=== PATIENT | male | born 1960 | race Caucasian/White ===

== ENCOUNTER 2017-02-05 05:44 | Day surgery (SDC) | payer OTHER ==
[~2017-02-05] VITALS: Ht 180.3 cm; Wt 102.6 kg
[2017-02-05] MEDS ORDERED: LIDOCAINE 1%, 2ML ONE (06:47)
[2017-02-05 06:49] VITALS: BP 146/79
[2017-02-05] MEDS ORDERED: LACTATED RINGERS 1,000 ML IV SCH (07:00)
[2017-02-05] MEDS ORDERED: LIDOCAINE 1%, 2ML SQ PRN (07:00)
[2017-02-05] MEDS ORDERED: BUPIVACAINE/PF 0.25% ONE (07:02)
[2017-02-05] MEDS ORDERED: THROMBIN 5,000 UNIT VIAL TP ONE (07:03)
[2017-02-05] MEDS ORDERED: EPINEPHRINE 1 MG/ML, 1ML ONE (07:03)
[2017-02-05] MEDS ORDERED: VANCOMYCIN 1,000 MG ONE (07:03)
[2017-02-05] MEDS ORDERED: LIDOCAINE/PF 0.5% ,50ML ONE (07:03)
[2017-02-05] MEDS ORDERED: GLIP10TA13 PO (07:08)
[2017-02-05] MEDS ORDERED: DULA1.5P SQ (07:08)
[2017-02-05] MEDS ORDERED: LISI5TAB7 PO (07:08)
[2017-02-05] MEDS ORDERED: ATOR20TA9 PO (07:08)
[2017-02-05] MEDS ORDERED: ASPI-496 PO (07:08)
[2017-02-05] MEDS ORDERED: INSU100V8 SQ (07:08)
[2017-02-05] MEDS ORDERED: FENO43CA3 PO (07:08)
[2017-02-05] MEDS ORDERED: OXYC1TAB9 PO (07:08)
[2017-02-05] MEDS ORDERED: METF500T4 PO (07:08)
[2017-02-05] MEDS ORDERED: DEXAMETHASONE 4 MG/ML, 1ML ONE ×2 (07:20→07:37)
[2017-02-05] MEDS ORDERED: SUCCINYLCHOLINE 20 MG/ML, 10ML ONE (07:20)
[2017-02-05] MEDS ORDERED: PROPOFOL 10 MG/ML, 20ML ONE (07:20)
[2017-02-05] MEDS ORDERED: FENTANYL PF 250 MCG/5ML ONE (07:20)
[2017-02-05] MEDS ORDERED: MIDAZOLAM 1 MG/ML, 2ML ONE (07:20)
[2017-02-05] MEDS ORDERED: ROCURONIUM 10 MG/ML,10ML ONE (07:20)
[2017-02-05] MEDS ORDERED: LIDOCAINE GEL 2%, 5ML ONE (07:20)
[2017-02-05] MEDS ORDERED: ONDANSETRON 2MG/ML, 2ML ONE (07:21)
[2017-02-05] MEDS ORDERED: CEFAZOLIN 1,000 MG ONE ×2 (07:37→07:58)
[2017-02-05] MEDS ORDERED: KETAMINE 10 MG/ML, 20ML ONE (07:59)
[2017-02-05] MEDS ORDERED: LABETALOL 5MG/ML, 20ML IV PRN (08:30)
[2017-02-05] MEDS ORDERED: OXYcodone 5 MG/5 ML ORAL.SOL UDC PO PRN (08:30)
[2017-02-05] MEDS ORDERED: hydrALAzine 20 MG/ML, 1ML IV PRN (08:30)
[2017-02-05] MEDS ORDERED: ALBUTEROL SULFATE 2.5 MG/3 ML NPPB PRN (08:30)
[2017-02-05] MEDS ORDERED: PROMETHAZINE 25 MG/ML, 1ML IV PRN (08:30)
[2017-02-05] MEDS ORDERED: MIDAZOLAM 1 MG/ML, 2ML IV PRN (08:30)
[2017-02-05] MEDS ORDERED: ONDANSETRON 2MG/ML, 2ML IVPush PRN (08:30)
[2017-02-05] MEDS ORDERED: MEPERIDINE/PF 25MG/0.5ML IVPush PRN (08:30)
[2017-02-05] MEDS ORDERED: FENTANYL PF 100 MCG/2ML IV PRN (08:30)
[2017-02-05] MEDS ORDERED: FENTANYL PF 100 MCG/2ML ONE (08:59)
[2017-02-05] MEDS ORDERED: BUPIVACAINE/PF 0.25% INFIL ONE (09:37)
[2017-02-05] MEDS ORDERED: OXYcodone 5 MG/5 ML ORAL.SOL UDC ONE (10:18)
[2017-02-05] MEDS ORDERED: HYDROmorphone 2 MG/ML, 1ML ONE (10:45)
[2017-02-05] MEDS: HYDROmorphone 1 MG/ML, 1ML IV PRN ×2 (10:47→11:01)
== END 2017-02-05 12:00 ==
LOC: OUT 05:44
PROVIDERS: ATTEND Orthopaedic Surgery Orthopaedic Surgery of the Spine
DX: M51.26 Other intervertebral disc displacement, lumbar region (principal); I10 Essential (primary) hypertension; E11.9 Type 2 diabetes mellitus without complications; Z98.890 Other specified postprocedural states; Z87.891 Personal history of nicotine dependence; E78.5 Hyperlipidemia, unspecified
CPT/HCPCS: 63030; 72100; 82962; J0171; J0330; J0690; J1100; J1170; J2001; J2250; J2405; J2704; J3010; J3370; J3490; J7120